=== PATIENT | male | born 1990 | race Caucasian/White ===

== ENCOUNTER 2017-12-26 17:52 | Emergency (ER) | END 2017-12-27 01:13 | disposition home or self-care (01) ==

== ENCOUNTER 2018-12-17 16:22 | Emergency (ER) | payer SELFPAY ==
[~2018-12-17] VITALS: Ht 165.1 cm; Wt 97.9 kg
[~2018-12-17 16:22] MED LIST: CLIN300C10 PO; HYDR-4011 PO; SULF1TAB31 PO
[2018-12-17 16:42] VITALS: BP 132/78; PULSE 85; RESP 18; Ht 165.1 cm; Wt 97.9 kg
[2018-12-17] MEDS ORDERED: ONDANSETRON (ODT) 4 MG TAB ODT STA (18:02)
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
[2018-12-17] MEDS ORDERED: HYDROCODONE/APAP (5/325) TAB PO ONE (18:30)
[2018-12-17] MEDS ORDERED: HYDR-4011 PO (19:19)
[2018-12-17] MEDS ORDERED: IBUP-1561 PO (19:19)
[2018-12-17] MEDS ORDERED: ACET325T33 PO (19:19)
== END 2018-12-17 19:48 | disposition home or self-care (01) ==
LOC: FTE 16:22
DX: S06.0X0A Concussion without loss of consciousness, initial encounter (principal); S19.9XXA Unspecified injury of neck, initial encounter; V49.40XA Driver injured in collision with unspecified motor vehicles in traffic accident, initial encounter; Z87.891 Personal history of nicotine dependence
CPT/HCPCS: 70450; 72125; 73590